=== PATIENT | female | born 1930 | race Asian ===

== ENCOUNTER 2017-04-18 07:23 | Day surgery (SDC) | payer MEDICAID ==
[~2017-04-18] VITALS: Ht 134.6 cm; Wt 39.9 kg
--- NOTE | ~2017-04-18 | OR ---
PAT[facility] AGE: 86 Y [address] ROOM: [place] [address] LOCATION: [facility] [place] ADMIT DATE: 04/18/2017 OR/Procedure Report DISCHARGE DATE: FAMILY PHYSICIAN: Huseyin Hernadez MD ATTENDING PHYSICIAN: MARILYN RAM SURGEON: Marilyn Ram MD PERIPHERAL VASCULAR TECH: Mars Barrow PA-C DATE OF PROCEDURE: 04/18/2017 PREOPERATIVE DIAGNOSIS: Right fifth metatarsal Aldridge fracture of the foot. POSTOPERATIVE DIAGNOSIS: Right fifth metatarsal Aldridge fracture of the foot. PROCEDURES PERFORMED: 1. Open reduction and internal fixation of right fifth metatarsal Aldridge fracture. 2. Use of intraoperative fluoroscopy, less than one hour. ANESTHESIA: Sedation and peripheral nerve block. FLUIDS: See anesthesia report. ESTIMATED BLOOD LOSS: Minimal. TOURNIQUET: Right ankle. SPECIMENS: None. COMPLICATIONS: None. DISPOSITION: Stable, in PACU. COUNTS: All counts were correct. INDICATION: Ms. Benz is an 86-year-old female who underwent the noted procedures above. The risks, benefits, and alternatives to pursuing surgical intervention were discussed with the patient in detail. They elected to proceed with surgery. Anesthesia was consulted for their perioperative evaluation of the patient. I marked the right foot, indicating the correct surgical site. DESCRIPTION OF PROCEDURE: The patient was brought from the holding area to the operative room. A time-out was performed. Anesthesia was administered. The right lower extremity was then prepped and draped in a sterile fashion. I PAT[facility]'S NAME: [facility] AGE: 86 Y [address] ROOM: [place] [address] LOCATION: [facility] [place] ADMIT DATE: 04/18/2017 OR/Procedure Report DISCHARGE DATE: FAMILY PHYSICIAN: Huseyin Hernadez MD ATTENDING PHYSICIAN: MARILYN RAM turned my attention to the right foot. An Esmarch was used to exsanguinate the foot, and an ankle tourniquet was placed just at the supramalleolar region of the ankle. I then introduced intraoperative fluoroscopy. Identified the fracture site. I introduced a pin into the fracture site. I confirmed its position fluoroscopically. I made an incision proximal to the fifth metatarsal tuberosity through skin and subcutaneous tissue. With my medical office assistant retracting the peroneal tendons, I subsequently overdrilled for my solid screw. I subsequently tapped and then placed a 36 mm long, 4 mm in diameter, screw to stabilize the fracture. There was some displacement of the fracture site, though overall it held the tuberosity in a good position. Final fluoroscopic images revealed evidence of successful open reduction and internal fixation of right fifth metatarsal Aldridge fracture. The wound was then copiously irrigated and closed in layers. The tourniquet was let down from the ankle, and the foot reperfused. A sterile dressing was placed in the form of Xeroform, followed by 4x4 and Webril. The patient was then placed into a well-padded short-leg splint with the ankle in neutral dorsiflexion. The patient was then transferred from the operating table onto the stretcher and brought to the recovery room in stable condition. There were no intraoperative complications noted. Of note, my PA, Mars Barrow PA-C, played an integral role in the intraoperative care of this patient. This included preoperative positioning; intraoperative expert retraction; and closing, dressing, and splinting functions. IMPRESSION: The patient is status post the noted procedures above. PLAN: The patient will be nonweightbearing on the right lower extremity in a splint. She will be encouraged to rest, ice, and elevate the ankle going forward. She will be discharged home provided she meets PACU discharge criteria. She will follow up with me in 2 weeks for her first postoperative visit. MARILYN RAM MD RCD/modl PATIENT'S NAME: ERNESTINA BENZ [facility] AGE: 86 Y [address] ROOM: [place] [address] LOCATION: [facility] [place] ADMIT DATE: 04/18/2017 OR/Procedure Report DISCHARGE DATE: FAMILY PHYSICIAN: Huseyin Hernadez MD ATTENDING PHYSICIAN: MARILYN RAM /[id number] d: 04/18/17 1706 t: 04/19/17 1043, OPERATIVE SUMMARY
[~2017-04-18 07:23] MED LIST: ADVAIR 250-501 EACH INH; ASPIRIN LO-DOSE81 MG PO; CLOPIDOGREL75 MG PO; COREG6.25 MG PO; DELTASONE10 MG PO; ENTRESTO 24 MG1 EACH PO; FLONASE 50 MCG/16 GM NOSE; FOSAMAX70 MG PO; IMDUR30 MG PO; LASIX20 MG PO; LEVOTHROID (SY50 MCG PO; LYRICA 75MG CAP75 MG PO; PROAIR RESPICL90 MCG INH; TESSALON PERLE100 MG PO; ZANTAC (NON-FO150 MG PO; ZOCOR40 MG PO
[2017-04-18] MEDS ORDERED: ASPIRIN325 MG PO (10:38)
[2017-04-18] MEDS ORDERED: PERCOCET 5-3251 EACH PO (10:39)
== END 2017-04-18 11:25 | disposition disaster alternative care site (69) ==
LOC: GSDC 07:23
PROC: 0QSN04Z Reposition Right Metatarsal with Internal Fixation Device, Open Approach (ICD-10-PCS; principal; 2017-04-18)
DX: S92.351A Displaced fracture of fifth metatarsal bone, right foot, initial encounter for closed fracture (principal); M19.90 Unspecified osteoarthritis, unspecified site; I25.10 Atherosclerotic heart disease of native coronary artery without angina pectoris; E78.00 Pure hypercholesterolemia, unspecified; Z95.810 Presence of automatic (implantable) cardiac defibrillator; E03.9 Hypothyroidism, unspecified; J44.9 Chronic obstructive pulmonary disease, unspecified; I25.9 Chronic ischemic heart disease, unspecified; I13.2 Hypertensive heart and chronic kidney disease with heart failure and with stage 5 chronic kidney disease, or end stage renal disease; N18.5 Chronic kidney disease, stage 5; I50.9 Heart failure, unspecified; D63.1 Anemia in chronic kidney disease; K21.9 Gastro-esophageal reflux disease without esophagitis; M17.11 Unilateral primary osteoarthritis, right knee; M81.0 Age-related osteoporosis without current pathological fracture; E46 Unspecified protein-calorie malnutrition; Z90.710 Acquired absence of both cervix and uterus; W19.XXXA Unspecified fall, initial encounter; Z98.890 Other specified postprocedural states; Z79.82 Long term (current) use of aspirin; Z79.899 Other long term (current) drug therapy; Z91.040 Latex allergy status
CPT/HCPCS: C1713; J0690; J2001; J7030